=== PATIENT | female | born 1945 | race Caucasian/White ===

== ENCOUNTER 2020-11-16 07:03 | Day surgery (SDC) | payer MEDICARE, BC ==
[~2020-11-16] VITALS: Ht 165.1 cm; Wt 72.9 kg
[~2020-11-16 07:03] MED LIST: ASCO500; ASPI81CH; Amaryl1 MG PO; CYAN1000; FAMO10 PO; FAMO20 PO; FURO20; GLIM4 PO; GLUCHON; INSULANI; LEVOTHYROXINE112 MC3 PO; LEVSOD112; LISI20 PO; LISI5; LISI5 PO; METF500; METF500C PO; METO25ER PO; MULTIVITAMIN; OMEP20ER; OXYACE5T PO; RXOXYACE; TURMERIC500 M2 PO; UBID100 PO; VENL37.5; VENL37.5 PO; VICTOZA 2-0.6 MG/0.1 SC; VITAMIN D; Vitamin B-121000 MCG PO; Vitamin D2000 UNIT PO
[2020-11-16] MEDS ORDERED: ASPI81CH (07:32)
== END 2020-11-16 09:30 | disposition home or self-care (01) ==
LOC: ORSCSDS 07:03
PROVIDERS: Internal Medicine Gastroenterology
PROC: 0DBN8ZX Excision of Sigmoid Colon, Via Natural or Artificial Opening Endoscopic, Diagnostic (ICD-10-PCS; principal; 2020-11-16 08:30)
PROC: 0DBK8ZX Excision of Ascending Colon, Via Natural or Artificial Opening Endoscopic, Diagnostic (ICD-10-PCS; principal; 2020-11-16 08:30)
DX: Z86.010 Personal history of colon polyps (principal); D12.2 Benign neoplasm of ascending colon; D12.5 Benign neoplasm of sigmoid colon; K64.8 Other hemorrhoids; K64.4 Residual hemorrhoidal skin tags; K21.9 Gastro-esophageal reflux disease without esophagitis; E11.9 Type 2 diabetes mellitus without complications; E03.9 Hypothyroidism, unspecified; I10 Essential (primary) hypertension; Z79.899 Other long term (current) drug therapy; Z79.84 Long term (current) use of oral hypoglycemic drugs
CPT/HCPCS: 82947; 88305; J0461; J2405; J2704; J7120

== ENCOUNTER → 2021-06-07 | Outpatient (CLI) | payer MEDICARE, BC | LOC: LAB 12:12 → LAB SHORT 12:12 | DX: A49.9 Bacterial infection, unspecified (principal) | CPT/HCPCS: 87070; 87205 ==

== ENCOUNTER 2023-06-23 21:20 | Emergency (ER) | payer OTHER, MEDICARE, BC ==
[~2023-06-23] VITALS: Ht 165.1 cm; Wt 73.5 kg
[2023-06-23 22:45] VITALS: BP 162/78
== END 2023-06-23 23:35 | disposition home or self-care (01) ==
LOC: ER 21:20
DX: S82.031A Displaced transverse fracture of right patella, initial encounter for closed fracture (principal); I10 Essential (primary) hypertension; E03.9 Hypothyroidism, unspecified; E11.9 Type 2 diabetes mellitus without complications; W01.0XXA Fall on same level from slipping, tripping and stumbling without subsequent striking against object, initial encounter; Z85.3 Personal history of malignant neoplasm of breast; Z79.899 Other long term (current) drug therapy; Z79.84 Long term (current) use of oral hypoglycemic drugs; Z79.82 Long term (current) use of aspirin
CPT/HCPCS: 29505; 73562-RT; 96372; 99283-25; J1885